=== PATIENT | female | born 1980 | race Caucasian/White ===

== ENCOUNTER → 2020-04-14 09:43 | Outpatient (BNVA) | payer OTHER, SELFPAY | PROVIDERS: PCP Internal Medicine; Referring Provider Internal Medicine; Visit Provider Obstetrics & Gynecology | DX: E28.2 Polycystic ovarian syndrome (principal) | CPT/HCPCS: 99212 ==

== ENCOUNTER → 2020-05-07 11:16 | Outpatient (BNVA) | payer OTHER, SELFPAY | PROVIDERS: PCP Internal Medicine; Visit Provider Obstetrics & Gynecology | DX: Z76.89 Persons encountering health services in other specified circumstances (principal) ==

== ENCOUNTER 2020-05-26 09:07 | Outpatient (REF) | payer OTHER, SELFPAY ==
[2020-05-26 11:31] LABS: Estimated Average Glucose 177 mg/dL; Hemoglobin A1c % 7.8 %; Total Hemoglobin (HGBA1C) 3789.6831 umol/L
[2020-05-26 11:52] LABS: Alanine Aminotransferase 24 U/L (0-31); Albumin Level 4.2 g/dL (3.5-5.0); Alkaline Phosphatase 70 U/L (39-117); Anion Gap 12 (12-20); Aspartate Amino Transferase 19 U/L (5-31); Bilirubin Total 1.2 mg/dL (0.0-1.0); Blood Urea Nitrogen 9 mg/dL (9-16); Calcium 8.7 mg/dL (8.4-10.2); Carbon Dioxide 27 mmol/L (22-29); Chloride 106 mmol/L (96-108); Estimated Glomerular Filt Rate > 60; Glucose Random 198 mg/dL (60-115); Potassium 4.5 mmol/l (3.3-5.1); Sodium 140 mmol/L (135-145)
[2020-05-26 12:07] LABS: Creatinine Urine 513.95 mg/dL; Microalbum/Creatinine Ratio Ur 6.8 ug/mg cr
[2020-05-27 08:47] LABS: LDL Cholesterol Direct 40 mg/dL (<100)
== END 2020-05-26 09:08 | disposition home or self-care (01) ==
LOC: HO.HMGCLDS 09:07
PROVIDERS: PCP Internal Medicine; Visit Provider Internal Medicine
DX: E13.9 Other specified diabetes mellitus without complications (principal); E66.01 Morbid (severe) obesity due to excess calories; Z68.41 Body mass index [BMI] 40.0-44.9, adult
CPT/HCPCS: 80053; 82043; 83036; 83721

== ENCOUNTER → 2020-06-04 11:56 | Outpatient (BNVA) | payer OTHER, SELFPAY | PROVIDERS: PCP Internal Medicine; Visit Provider Obstetrics & Gynecology | DX: Z76.89 Persons encountering health services in other specified circumstances (principal) ==

== ENCOUNTER 2020-10-16 09:10 | Outpatient (REF) | payer OTHER, SELFPAY ==
[2020-10-16 12:01] LABS: Estimated Average Glucose 186 mg/dL; Hemoglobin A1c % 8.1 %
[2020-10-16 12:05] LABS: Anion Gap 13 (12-20); Blood Urea Nitrogen 9 mg/dL (9-16); Calcium 9.3 mg/dL (8.4-10.2); Carbon Dioxide 29 mmol/L (22-29); Chloride 104 mmol/L (96-108); Estimated Glomerular Filt Rate > 60; Glucose Random 158 mg/dL (60-115); Potassium 4.5 mmol/L (3.3-5.1); Sodium 141 mmol/L (135-145)
[2020-10-16 12:17] LABS: Creatinine Urine 281.94 mg/dL; Microalbum/Creatinine Ratio Ur 7.4 ug/mg cr
[2020-10-17 12:12] LABS: LDL Cholesterol Direct 39 mg/dL (<100)
== END 2020-10-16 09:11 | disposition home or self-care (01) ==
LOC: HO.HMGCLDS 09:10
PROVIDERS: PCP Internal Medicine; Visit Provider Internal Medicine
DX: E13.9 Other specified diabetes mellitus without complications (principal)
CPT/HCPCS: 36415; 80048; 82043; 83036; 83721

== ENCOUNTER 2020-11-11 09:15 | Outpatient (REF) | payer OTHER, SELFPAY ==
[2020-11-11 16:35] LABS: CT PCR NOT DETECTED (Not Detect.); NG PCR NOT DETECTED (Not Detect.)
[2020-11-12 10:04] LABS: BV Int Neg Control Negative (Negative); BV Int Pos Control Positive (Positive)
== END 2020-11-11 09:16 | disposition home or self-care (01) ==
LOC: HO.LAB 09:15
PROVIDERS: Visit Provider Advanced Practice Midwife
DX: Z01.419 Encounter for gynecological examination (general) (routine) without abnormal findings (principal); E28.2 Polycystic ovarian syndrome; N91.2 Amenorrhea, unspecified; E13.9 Other specified diabetes mellitus without complications; E66.01 Morbid (severe) obesity due to excess calories; Z20.2 Contact with and (suspected) exposure to infections with a predominantly sexual mode of transmission; Z79.899 Other long term (current) drug therapy
CPT/HCPCS: 87480; 87491; 87510; 87591; 87660

== ENCOUNTER 2020-12-05 12:46 | Outpatient (REF) | payer OTHER, SELFPAY ==
--- NOTE | ~2020-12-05 | XR_ITS ---
EXAMINATION: XR ANKLE, RIGHT XR FOOT, RIGHT CLINICAL INFORMATION: M25.571 - Pain in right ankle and joints of right foot COMPARISON: None TECHNIQUE: Right ankle is imaged in 2 views. Right foot is imaged in 2 views. A lateral view of the combined right ankle and foot in a large [id number] is also provided for a total of 5 views. FINDINGS: There is no fracture, dislocation, destructive process. The bony mineralization is normal. The malleoli are intact and the ankle mortise is symmetric. The talar dome shows no osteochondral lesion. There is some minor spurring from the distal anterior tibia. The retrocalcaneal recess is preserved. The subtalar joint is unremarkable. There are bulky posterior and plantar calcaneal spurs. There are incidental corticated ossicles just distal to the medial malleolus and also adjacent to the medial side tarsal navicular. The midfoot and forefoot show no focal joint narrowing or erosive changes. There is a mild hallux valgus of approximately 20 degrees. XR/XR ankle RT min 3V IMPRESSION: 1. No acute or healing fracture, destructive process, or erosive arthropathy. 2. Bulky posterior and plantar calcaneal spurs. 3. Mild hallux valgus, approximately 20 degrees.
--- NOTE | ~2020-12-05 | XR_ITS ---
EXAMINATION: XR ANKLE, RIGHT XR FOOT, RIGHT CLINICAL INFORMATION: M25.571 - Pain in right ankle and joints of right foot COMPARISON: None TECHNIQUE: Right ankle is imaged in 2 views. Right foot is imaged in 2 views. A lateral view of the combined right ankle and foot in a large [id number] is also provided for a total of 5 views. FINDINGS: There is no fracture, dislocation, destructive process. The bony mineralization is normal. The malleoli are intact and the ankle mortise is symmetric. The talar dome shows no osteochondral lesion. There is some minor spurring from the distal anterior tibia. The retrocalcaneal recess is preserved. The subtalar joint is unremarkable. There are bulky posterior and plantar calcaneal spurs. There are incidental corticated ossicles just distal to the medial malleolus and also adjacent to the medial side tarsal navicular. The midfoot and forefoot show no focal joint narrowing or erosive changes. There is a mild hallux valgus of approximately 20 degrees. XR/XR foot RT min 3V IMPRESSION: 1. No acute or healing fracture, destructive process, or erosive arthropathy. 2. Bulky posterior and plantar calcaneal spurs. 3. Mild hallux valgus, approximately 20 degrees.
== END 2020-12-05 12:47 | disposition home or self-care (01) ==
LOC: HO.HMGCX 12:46
PROVIDERS: PCP Internal Medicine; Visit Provider Hospitalist
DX: M25.571 Pain in right ankle and joints of right foot (principal)
CPT/HCPCS: 73610; 73630

== ENCOUNTER 2021-02-25 09:15 | Outpatient (REF) | payer OTHER, SELFPAY ==
[2021-02-25 11:34] LABS: MANUAL DIFF FLAG NO
[2021-02-25 11:41] LABS: Basophils Percent Auto 0.3 % (0-2); Eosinophils Absolute Auto 0.4 X10*3/uL (0.0-0.4); Eosinophils Percent Auto 4.5 % (0-4); Hematocrit 46.8 % (37-47); Hemoglobin 15.4 g/dl (12.0-16.0); Imm Gran Abs Auto 0.03 X10*3/uL (0.00-0.03); Imm Gran Pct Auto 0.3 % (0.0-0.4); Lymphocytes Absolute Auto 2.9 X10*3/uL (1.2-4.9); Lymphocytes Percent Auto 32.6 % (20-40); Mean Corpuscular HGB Conc 32.9 g/dl (31.0-35.0); Mean Corpuscular Hemoglobin 27.8 pg (27.0-33.0); Mean Corpuscular Volume 84.6 fL (80-98); Mean Platelet Volume 9.5 fL (9.4-12.3); Monocytes Absolute Auto 0.5 X10*3/uL (0.1-1.2); Monocytes Percent Auto 5.3 % (2-11); Platelet Count 382 X10*3/uL (160-400); Red Blood Count 5.53 X10*6/uL (4.20-5.50); Red Cell Distribution Width 12.5 % (11.0-16.0); White Blood Count 8.9 X10*3/uL (4.8-10.8)
[2021-02-25 12:04] LABS: Estimated Average Glucose 214 mg/dL; Hemoglobin A1c % 9.1 %
[2021-02-25 12:26] LABS: Alanine Aminotransferase 25 U/L (0-31); Albumin Level 4.3 g/dL (3.5-5.0); Alkaline Phosphatase 80 U/L (39-117); Anion Gap 12 (12-20); Aspartate Amino Transferase 19 U/L (5-31); Bilirubin Total 1.1 mg/dL (0.0-1.0); Blood Urea Nitrogen 10 mg/dL (9-16); Calcium 9.4 mg/dL (8.4-10.2); Carbon Dioxide 28 mmol/L (22-29); Chloride 103 mmol/L (96-108); Estimated Glomerular Filt Rate > 60; Glucose Random 247 mg/dL (60-115); Sodium 138 mmol/L (135-145); Total Protein 7.1 g/dL (6.5-8.0)
[2021-02-26 23:21] LABS: LDL Cholesterol Direct 35 mg/dL (<100)
== END 2021-02-25 09:16 | disposition home or self-care (01) ==
LOC: HO.HMGCLDS 09:15
PROVIDERS: PCP Internal Medicine; Visit Provider Internal Medicine
DX: E13.9 Other specified diabetes mellitus without complications (principal); E66.01 Morbid (severe) obesity due to excess calories
CPT/HCPCS: 36415; 80053; 83036; 83721; 85025

== ENCOUNTER 2021-06-01 09:24 | Outpatient (REF) | payer OTHER, SELFPAY ==
[2021-06-01 11:34] LABS: Estimated Average Glucose 157 mg/dL; Hemoglobin A1c % 7.1 %
[2021-06-01 11:39] LABS: Creatinine Urine 100.75 mg/dL; Microalbum/Creatinine Ratio Ur 4.9 ug/mg cr
[2021-06-01 11:49] LABS: Alanine Aminotransferase 33 U/L (0-31); Albumin Level 4.1 g/dL (3.5-5.0); Alkaline Phosphatase 84 U/L (39-117); Anion Gap 8 (12-20); Aspartate Amino Transferase 21 U/L (5-31); Bilirubin Total 0.6 mg/dL (0.0-1.0); Blood Urea Nitrogen 5 mg/dL (9-16); Calcium 9.1 mg/dL (8.4-10.2); Carbon Dioxide 30 mmol/L (22-29); Chloride 106 mmol/L (96-108); Estimated Glomerular Filt Rate > 60; Glucose Random 167 mg/dL (60-115); Potassium 4.5 mmol/L (3.3-5.1); Sodium 139 mmol/L (135-145); Total Protein 6.7 g/dL (6.5-8.0)
[2021-06-02 04:30] LABS: LDL Cholesterol Direct 35 mg/dL (<100)
== END 2021-06-01 09:25 | disposition home or self-care (01) ==
LOC: HO.HMGCLDS 09:24
PROVIDERS: PCP Internal Medicine; Visit Provider Internal Medicine
DX: E11.65 Type 2 diabetes mellitus with hyperglycemia (principal); E66.01 Morbid (severe) obesity due to excess calories
CPT/HCPCS: 36415; 80053; 82043; 83036; 83721

== ENCOUNTER 2021-10-06 10:23 | Outpatient (REF) | payer OTHER, SELFPAY ==
[2021-10-06 12:36] LABS: Hematocrit 47.9 % (37.0-47.0); Hemoglobin 15.7 g/dl (12.0-16.0); Mean Corpuscular HGB Conc 32.8 g/dl (31.0-35.0); Mean Corpuscular Volume 85.5 fL (80.0-98.0); Mean Platelet Volume 9.4 fL (9.4-12.3); Platelet Count 413 X10*3/uL (160-400); Red Cell Distribution Width 12.8 % (11.0-16.0); White Blood Count 13.7 X10*3/uL (4.8-10.8)
[2021-10-06 12:46] LABS: Estimated Average Glucose 237 mg/dL; Hemoglobin A1c % 9.9 %
[2021-10-06 13:07] LABS: Alanine Aminotransferase 39 U/L (0-31); Albumin Level 4.5 g/dL (3.5-5.0); Alkaline Phosphatase 79 U/L (39-117); Anion Gap 13 (12-20); Aspartate Amino Transferase 34 U/L (5-31); Bilirubin Total 1.2 mg/dL (0.0-1.0); Blood Urea Nitrogen 10 mg/dL (9-16); Calcium 10.3 mg/dL (8.4-10.2); Carbon Dioxide 28 mmol/L (22-29); Chloride 105 mmol/L (96-108); Estimated Glomerular Filt Rate > 60; Glucose Random 87 mg/dL (60-115); Potassium 4.4 mmol/L (3.3-5.1); Sodium 142 mmol/L (135-145); Total Protein 7.6 g/dL (6.5-8.0)
[2021-10-06 13:26] LABS: HCG Quantitative < 2 mIU/mL; TSH reflex Free T4 1.19 uIU/mL (0.32-4.0)
[2021-10-06 18:16] LABS: CT PCR NOT DETECTED (Not Detect.); NG PCR NOT DETECTED (Not Detect.)
== END 2021-10-06 10:24 | disposition home or self-care (01) ==
LOC: HO.LAB 10:23
PROVIDERS: Internal Medicine; Visit Provider Obstetrics & Gynecology
DX: N93.9 Abnormal uterine and vaginal bleeding, unspecified (principal); E66.01 Morbid (severe) obesity due to excess calories; E13.9 Other specified diabetes mellitus without complications; Z11.3 Encounter for screening for infections with a predominantly sexual mode of transmission
CPT/HCPCS: 36415; 58100; 80053; 81025; 83036; 84443; 84702; 85027; 87491; 87591; 88305; 99212

== ENCOUNTER 2021-10-21 10:07 | Outpatient (REF) | payer OTHER, SELFPAY ==
--- NOTE | ~2021-10-21 | US_ITS ---
EXAMINATION: US PELVIS CLINICAL INFORMATION: Abnormal uterine and vaginal bleeding. COMPARISON: None. TECHNIQUE: Ultrasound of the pelvis is performed using both transabdominal and transvaginal transducers along with Doppler. Transvaginal imaging is performed due to inadequate visualization transabdominally. FINDINGS: Uterus: The uterus is anteverted, anteflexed and measures 7.23 cm in length, 3.09 cm in AP and 4.41 cm in transverse dimension. The double wall endometrial thickness is 0.68 cm. The uterus is smooth in contour and has normal myometrial echogenicity. No visible fibroid. Adnexa: Both ovaries are visualized. There is normal color flow to the adnexa. There is no ovarian torsion. There is no pelvic ascites or fluid collection. Right ovary measures 3.5 and a 2.1 x 3.34 cm and and volume 12.93 mL. No focal lesion seen. Previously right ovary measured 3.8 x 2.5 x 2.1 cm. Left ovary measures 4.61 x 3.19 x 4.48 cm and volume 34.50 mL. There is a complex anechoic cyst measuring 3.4 x 2.9 x 3.3 cm. There are small nabothian cysts seen in the cervix. There is no free fluid in the cul-de-sac. US/US pelvic and transvaginal IMPRESSION: Complex cyst left ovary measuring 2.4 cm. Unremarkable right ovarian uterus. Small nabothian cysts in the cervix.
== END 2021-10-21 10:08 | disposition home or self-care (01) ==
LOC: HO.HMGCX 10:07
PROVIDERS: Visit Provider Obstetrics & Gynecology
DX: N93.9 Abnormal uterine and vaginal bleeding, unspecified (principal)
CPT/HCPCS: 76830; 76856

== ENCOUNTER 2021-11-05 13:39 | Outpatient (REF) | payer OTHER, SELFPAY ==
[2021-11-07 04:57] LABS: CA 125 New Method 10 U/mL (<35); CA-125 10 U/mL (<35)
== END 2021-11-05 13:40 | disposition home or self-care (01) ==
LOC: HO.LAB 13:39
PROVIDERS: Visit Provider Obstetrics & Gynecology
DX: N83.299 Other ovarian cyst, unspecified side (principal); N93.9 Abnormal uterine and vaginal bleeding, unspecified
CPT/HCPCS: 36415; 86304; 99212

== ENCOUNTER 2021-12-03 10:16 | Outpatient (REF) | payer OTHER, SELFPAY ==
--- NOTE | ~2021-12-03 | US_ITS ---
EXAMINATION: US PELVIS CLINICAL INFORMATION: Follow-up ovarian cyst COMPARISON: Previous exam September 2021 TECHNIQUE: Ultrasound of the pelvis is performed using both transabdominal and transvaginal transducers along with Doppler. Transvaginal imaging is performed due to inadequate visualization transabdominally. FINDINGS: The uterus is anteverted and measures 7 x 3 x 4.5 cm in dimension. No focal uterine lesion is seen. Endometrial thickness is normal measuring 0.4 cm. There are nabothian cysts seen in the cervix. The right ovary is in size and measures 3.9 x 2.4 x 2.7 cm. There are multiple small peripheral simple cysts or follicles of the right ovary. The left ovary is slightly enlarged and measures 4.4 x 3.1 x 3.3 cm. There are multiple small peripheral simple cysts or follicles in the left ovary. There is a 1.7 x 1.5 x 1.9 cm complex left ovarian cyst. This is decreased in size from September 2021 exam when this measured 3.4 x 2.9 x 3.3 cm. There is no fluid in the pelvis. US/US pelvic and transvaginal IMPRESSION: Polycystic appearance of the ovaries. Interval decrease in size in the complex cyst in the left ovary now measuring 1.7 x 1.5 x 1.9 cm.
== END 2021-12-03 10:17 | disposition home or self-care (01) ==
LOC: HO.HMGCX 10:16
PROVIDERS: Visit Provider Obstetrics & Gynecology
DX: N83.299 Other ovarian cyst, unspecified side (principal)
CPT/HCPCS: 76830; 76856

== ENCOUNTER 2021-12-30 10:30 | Outpatient (REF) | payer OTHER, SELFPAY ==
--- NOTE | ~2021-12-30 | MM_ITS ---
EXAMINATION: MM SCREENING DIGITAL BREAST TOMOSYNTHESIS, BILATERAL CLINICAL INFORMATION: Screening. Asymptomatic. Age 41. No prior breast imaging. No known family history breast cancer. The lifetime risk of breast cancer based on the Tyrer-Cuzick Model is 14%. COMPARISON: None (current study represents initial baseline exam). TECHNIQUE: Digital breast tomosynthesis is performed in both the craniocaudal and mediolateral oblique views along with computer-aided detection (CAD). Synthesized 2D images are generated from the tomosynthesis. FINDINGS: The breasts are heterogeneously dense, which may obscure small masses (ACR BI-RADS breast composition Category c). There are no significant masses, abnormal calcifications, or other abnormalities. There is intramammary node posterior upper outer left breast. The axilla and skin contours are unremarkable. MM/MM tomosynthesis screening BI IMPRESSION: No mammographic evidence of malignancy. ASSESSMENT: BI-RADS 2: Benign RECOMMENDATION: Routine annual mammography screening. This patient's information was entered into a reminder system with a target due date for their next mammogram.
== END 2021-12-30 10:31 | disposition home or self-care (01) ==
LOC: HO.MAMMO 10:30
PROVIDERS: PCP Internal Medicine; Visit Provider Internal Medicine
DX: Z12.31 Encounter for screening mammogram for malignant neoplasm of breast (principal)
CPT/HCPCS: 77063; 77067